=== PATIENT | male | born 1960 | race Caucasian/White ===

== ENCOUNTER 2024-07-24 14:12 | Emergency (ER) | payer OTHER, SELFPAY ==
[2024-07-24] MEDS: TETANUS,DIPHTHERIA,AC PERTUSSIS ADULT 0.5 ML (ADACEL) IM (14:26)
[2024-07-24] MEDS: LIDOCAINE HCL 2% PF INJ 5 ML VIAL 1 ML INFILTRATE (14:27)
--- NOTE | 2024-07-24 14:39 | ED.GENADULT ---
HPI - General Adult General Chief complaint: Skin/Abscess/Foreign Body Stated complaint: foreign body hand History of Present Illness HPI narrative: patient presents with a large splinter through the webbing of his right hand. 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 He had no other injuries in the event he denies any other complaints. Patient's tried to remove the splinter but 1 end of it broke off. Related Data Allergies Allergy/AdvReac Type Severity Reaction Status Date / Time NKFA Allergy Unknown Hives Uncoded 07/24/24 14:21 PCN Allergy Unknown Hives Uncoded 07/24/24 14:21 Exam Narrative: Approximate 3 cm splinter penetrating the webbing of the patient's right hand without any surrounding erythema or induration. No bleeding. Exquisitely tender to the touch. The risks and benefits of the procedure were discussed with the patient these included possibility of worsening infection or breaking off the splinter and requiring more in-depth procedure to remove it. Benefits include removal of painful object and potentially decrease risk of infection. I confirmed the patient's name and his date of as well as the procedure we were performing in the presence of the patient he agrees to proceed. The area was cleaned using chlorhexidine. Approximately 1 cc of lidocaine without epi was infuse into the skin until adequate numbing was obtained. The splinter was grasped with a hemostat but could not easily be removed so an 11 blade scalpel was used to dominantly increase the size of the skin opening around the splinter and and the splinter easily slid out in a single piece. The area was dressed with triple antibiotic ointment and a nonadherent dressing and wrapped with Coban. Patient tolerated the procedure well. Medical Decision Making MDM Narrative Medical decision making narrative: Patient was placed in Room #:? 2 Independent Historian: patient's External Source Review: none Differential diagnosis includes but not limited to:? splinter in webbing of hand Medications were Reviewed: none Independently Interpreted by me: none Medications, treatment, ED course: splinter removed as described above Social situation impacting patients care: patient lives independently in the community Shared decision making:? discussed with patient the pros and cons of a prophylactic antibiotic. Given that this was a new piece of wood and not interspace were would likely be contaminated with common pathogens the patient elects to not take a prophylactic antibiotic. I think this is a reasonable choice. He was given return precautions regarding infection. Accepting physician: and a DISCHARGE DIAGNOSIS: minor trauma DISPOSITION: home with self-care CONDITION AT DISCHARGE:? stable, improved Discharge Plan Discharge Clinical Impression: Splinter Patient Disposition: Home, Self-Care Condition: Improved Instructions: Antibiotic Form, Puncture Wound (DC) Additional Instructions: Return to the emergency department or call 911 if? you develop high fever, shaking chills, or are unable to tolerate food or? fluids, have decreased urination, or are too sick to get out of bed. If you develop swelling, redness, heat around the area that please either contact the emergency department or your primary care doctor as you will need antibiotics at that point. You should have a low threshold for making this call / do not wait until you have any redness or swelling spreading up your arm. Follow-up/Referrals: Marshall,Vasile Stephens MD [Primary Care Provider] - Time of Disposition: 14:48
== END 2024-07-24 14:50 | disposition home or self-care (01) ==
LOC: CHSED 14:49
PROVIDERS: Emergency Provider Family Medicine; PCP Internal Medicine Infectious Disease
DX: S60.551A Superficial foreign body of right hand, initial encounter (principal); Z23 Encounter for immunization; W45.8XXA Other foreign body or object entering through skin, initial encounter
CPT/HCPCS: 10120; 90471; 90715; 99282; J2003

== ENCOUNTER 2025-04-12 14:19 | Outpatient (RCR) | payer OTHER, SELFPAY ==
--- NOTE | 2025-04-13 11:17 | PCPTNOTE ---
On 04/12/25, the student, [Tyler Naik], provided care and completed [facility] documentation on this patient. I have reviewed the student's documentation and agree with the findings.
--- NOTE | 2025-04-13 11:18 | OPREHPOC ---
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
--- NOTE | 2025-04-13 11:18 | PTOPEVAL1 ---
Assessment and note entered by JT File, PT Evaluation Information Assessment Status Evaluation ICD-10 Condition Codes (PT) Pain in low back M54.50,Radiculopathy, lumbar region M54.16 Subjective Information Pt reports that he has low back problems for a long time. Pt reports that the MD prescribed him meloxicam for the pain. Pt reports that once the medicine wears off he can not sleep, sit down, or do anything. Pt reports that when he is on the medicine he does good. Pt reports that he can only walk 1/2 mile out to his mail box before his back starts hurting. Pt reports that it feels like he has 400# on his shoulder pressing down his spine. Pt reports that when he is on his riding mower the pain will start to shoot down his L leg. Pt reports that he has trouble sleeping when he doesn 't take the medicine. Pt reports that he wants to get off the medicine. Pt reports that nothing other than the medicine makes his pain better. Pt reports that he had an MRI, that showed a bulge and arthritis. Pt reports that sitting for too long increases the pain. 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 Reported Pain Level Pain Score 1: Self Report Assessment PT Clinical Summary Mr. Mckenzie is a 64 y/o male who presents to skilled PT with low back pain and L sided lumbar radiculopathy. He has deficits in abdominal/hip strength, lumbar ROM, and posture. 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 Pt would benifit from skilled PT to improve these deficits, improve quality of life, work on functional goals, and return to [facility]. Plan of Care Interventions Electrical Stimulation,Hot Pack/Cold Pack,Manual Therapy,Mechanical Traction,Neuro Re-education, Patient/Caregiver Education,Therapeutic Activities ,Therapeutic Exercise PT Services Indicated Yes Treatment Frequency and 2x a week for 10 visits Duration These treatments will address the objective and functional deficits as defined above. The patient will be advanced safely and appropriately in order for the patient to progress towards his/her prior level of function. Additional exercises will be introduced and as well as a comprehensive home exercise program upon discharge, if needed, ?to ensure carryover of functional gains achieved in the clinic. This treatment plan has been reviewed and agreement upon by the patient.
--- NOTE | 2025-05-12 07:58 | OPREHPOC ---
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
--- NOTE | 2025-05-12 07:58 | PTOPDC ---
Assessment and note entered by Aminata Allison, PT Evaluation Information Assessment Status Discharge ICD-10 Condition Codes (PT) Pain in low back M54.50,Radiculopathy, lumbar region M54.16 Onset 04/06/2025 Subjective Information Gene reports his pain is slightly better since Friday because he started taking his Meloxicam again. 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 He has continued his HEP and notes benefit from this but he is unable to control his pain without medication. He reports he wants to return to the doctor and find something different to manage his pain because he doesn't want to be on pain meds long-term. Reported Pain Level Pain Score 8: Self Report Assessment PT Clinical Summary Mr. Mckenzie presents for his 10th skilled PT visit for low back pain today. He initially made good progress in physical therapy, but regressed after stopping his Meloxicam and he is now taking it again with a reduction in his pain. He has made improvements in his hip and core strength but due persistence of pain we recommend pt return to his referring physician for further assessment and next treatment options, and pt to continue HEP independently. Plan of Care PT Services Indicated No
== END 2025-05-12 09:11 | disposition home or self-care (01) ==
LOC: CHSPT 14:19
DX: M54.16 Radiculopathy, lumbar region (principal)
CPT/HCPCS: 97014; 97110; 97112; 97140; 97161; 97530; G0283